=== PATIENT | male | born 1965 | race African-American/Black ===

== ENCOUNTER 2017-01-01 12:48 | Emergency (ER) | payer OTHER ==
[~2017-01-01] VITALS: Ht 190.5 cm; Wt 113.4 kg
[~2017-01-01 12:48] MED LIST: IBUPROFEN600 MG ORAL; IBUPROFEN800 MG ORAL; NORCO 10/3251 EA ORAL; NORCO 5-325 TA1 EACH ORAL
[2017-01-01] MEDS ORDERED: Ketorolac 60mg Inj IM ONE (13:45)
--- NOTE | 2017-01-01 14:05 | Emergency Room Report ---
History of Present Illness General Chief Complaint: Pain Source: Patient Present Illness HPI 51 YO Male presents to the ED c/o left submandibular swelling which gets worse with eating and causes mild 5/10 discomfort and eventually regression, patient has a history of salivary duct stone. he also reports exacerbation of sciatica and reports 8/10 in severity low back pain radiating down the right leg denies incontinence denies recent trauma or fall. Denies recent illness, ill contacts or recent travel.Patient denies history of neoplastic disease, or recent spinal procedure. Denies numbness tingling or loss of sensation or gross motor movements of the extremities, incontinence of bowel or bladder. Denies numbness tingling or loss of sensation or gross motor movements of the extremities, incontinence of bowel or bladder. Denies CP, Palpitations, LOC, AMS, dizziness, Changes in Vision, Sensation, paresthesias, or a sudden severe headache. Allergies: Coded Allergies: No Known Allergies (Unverified , 05/08/14) Patient History Past Medical History: see triage record Past Surgical History: none Pertinent Family History: none Immunizations: UTD Reviewed Nursing Documentation: PMH: Agreed, PSxH: Agreed Nursing Documentation-PMH Past Medical History: No Stated History Review of Systems All Other Systems: negative except mentioned in HPI Physical Exam Vital Signs Date Time Temp Pulse Resp B/P Pulse Ox O2 Delivery O2 Flow Rate FiO2 01/01/17 13:06 97.9 127 18 150/92 97 Room Air Sp02 EP Interpretation: reviewed, normal General Appearance: no apparent distress, alert, GCS 15, non-toxic Head: normocephalic, atraumatic Eyes: bilateral eye PERRL, bilateral eye normal inspection ENT: hearing grossly normal, normal pharynx, no angioedema, normal voice, other - left submandibular swelling very minimal, no fluctuance, no erythema no palpable stones on bimanual exam. no tenderness under the tongue. Neck: full range of motion, supple/symm/no masses Respiratory: lungs clear, normal breath sounds, speaking full sentences Cardiovascular #1: regular rate, rhythm, no edema Gastrointestinal: normal bowel sounds, non tender, soft, no guarding, no rebound Rectal: deferred Genitourinary: normal inspection, no CVA tenderness Musculoskeletal: back normal, gait/station normal, normal range of motion, tender - lumbar paraspinal ttp, no midline ttp, mainly right paraspinal ttp, FROM of spine, no obvious deformities, no erytehma Neurologic: alert, oriented x3, responsive, motor strength/tone normal, sensory intact, cerebellar normal, normal gait, speech normal Psychiatric: judgement/insight normal, memory normal, mood/affect normal Skin: normal color, no rash, warm/dry, well hydrated Lymphatic: no adenopathy Medical Decision Making PA Attestation Dr. Aviles is my supervising Physician whom patient management has been discussed with. Diagnostic Impression: Primary Impression: Sialoadenitis of submandibular gland Additional Impression: Sciatica, right side ER Course Pt. presents to the ED c/o left submandibular swelling which gets worse with eating and causes mild discomfort and eventually regression, patient has a history of salivary duct stone. he also reports exacerbation of sciatica and reports 9/10 in severity low back pain radiating down the right leg denies incontinence denies recent trauma or fall. Denies recent illness, ill contacts or recent travel. Ddx considered but are not limited to sialoadenitis, ludwigs, cellulitis, parotitis, lad, sciatica, epidural abscess. Vital signs: pt is tachycardic, pt. is afebrile H&PE are most consistent with sialoadenitis of submandibular gland, No evidence of infection at this time. Swelling is minimal, no erythema no fevers. ORDERS: none required at this time, the diagnosis is clinical ED INTERVENTIONS: -IM TORADOL -Tylenol PO DISCHARGE: At this time pt. is stable for d/c to home. Will provide printed patient care instructions, and any necessary prescriptions. Care plan and follow up instructions have been discussed with the patient prior to discharge. Last Vital Signs Date Time Temp Pulse Resp B/P Pulse Ox O2 Delivery O2 Flow Rate FiO2 01/01/17 13:06 97.9 127 18 150/92 97 Room Air Disposition: HOME, SELF-CARE Condition: Stable Scripts Acetaminophen* (TYLENOL EXTRA STRENGTH*) 500 Mg Tablet 500 MG ORAL Q6H Y for Mild Pain/Temp > 100.5, #20 TAB 0 Refills Prov: Prerna Roberts P.A. 01/01/17 Cyclobenzaprine Hcl* (FLEXERIL*) 10 Mg Tablet 10 MG ORAL THREE TIMES A DAY for 7 Days, #21 TAB Prov: Prerna Roberts P.A. 01/01/17 Patient Instructions: Salivary Gland Infection, Sciatica Additional Instructions: Take medications as directed. Follow up with PCP in 3-5 days Return sooner to ED if new symptoms occur, or current symptoms become worse. Do not drink alcohol, drive, or operate heavy machinery while taking Muscle Relaxer as this may cause drowsiness. - Please note that this Emergency Department Report was dictated using [employer] instructor technology software, occasionally this can lead to erroneous entry secondary to interpretation by the dictation equipment. Prerna Roberts January 01, 2017 14:05
[2017-01-01] MEDS ORDERED: TYLENOL EXTRA500 MG ORAL (14:07)
[2017-01-01] MEDS ORDERED: CYCLOBENZAPRINE10 MG ORAL (14:07)
[2017-01-01 14:37] VITALS: BP 148/87
== END 2017-01-01 14:40 | disposition home or self-care (01) ==
LOC: EMR 13:41
DX: K11.20 Sialoadenitis, unspecified (principal); M54.31 Sciatica, right side; R00.0 Tachycardia, unspecified
CPT/HCPCS: 96372; 99284

== ENCOUNTER → 2017-02-11 | Emergency (ER) | payer OTHER ==
[~2017-02-11] VITALS: Ht 190.5 cm; Wt 113.4 kg
[~2017-02-11] MED LIST changes: +CYCLOBENZAPRINE10 MG ORAL; +ROBAXIN-750750 MG PO; +TYLENOL EXTRA500 MG ORAL
[2017-02-11 05:29] VITALS: BP 158/96
[2017-02-11 06:11] VITALS: BP 158/96
--- NOTE | 2017-02-11 06:21 | Emergency Room Report ---
History of Present Illness General Chief Complaint: Lower Back Pain or Injury Source: Patient Present Illness HPI 51YOM walk-in with 2-3 months of central lower back pain, "radiating down both legs." No known trauma or aggravating injury. States "I was told I have sciatica" last time I was here. Requesting T#4. Took only ibuprofen at home, mild relief. Denies associated urinary/fecal incontinence, lower extremity numbness, fever/chills, history of cancer, IVDU. Allergies: Coded Allergies: No Known Allergies (Unverified , 05/08/14) Patient History Past Medical History: none Past Surgical History: none Pertinent Family History: none Social History: Denies: alcohol use, drug use, smoking Immunizations: UTD Reviewed Nursing Documentation: PMH: Agreed, PSxH: Agreed Nursing Documentation-PMH Past Medical History: No Stated History Review of Systems All Other Systems: negative except mentioned in HPI Physical Exam Vital Signs Date Time Temp Pulse Resp B/P Pulse Ox O2 Delivery O2 Flow Rate FiO2 02/11/17 05:13 97.9 87 18 158/96 98 Room Air Sp02 EP Interpretation: reviewed, abnormal General Appearance: normal inspection, well appearing, no apparent distress, alert, GCS 15, non-toxic, obese Head: normocephalic, atraumatic Eyes: bilateral eye EOMI, bilateral eye PERRL ENT: normal ENT inspection, hearing grossly normal, normal voice Neck: normal inspection, full range of motion, supple, no bony tend Respiratory: normal inspection, lungs clear, normal breath sounds, no respiratory distress, no retraction, no wheezing Cardiovascular #1: regular rate, rhythm, no edema Gastrointestinal: normal inspection, normal bowel sounds, non tender, soft, no guarding, no hernia Genitourinary: no CVA tenderness Musculoskeletal: normal inspection, back normal, normal range of motion, Shemar' s Sign negative, other - +Straight leg raise bilaterally Neurologic: normal inspection, alert, oriented x3, responsive, cargo supervisor III-XII nml as tested, motor strength/tone normal, speech normal Psychiatric: normal inspection, judgement/insight normal, mood/affect normal Skin: normal inspection, normal color, no rash Lymphatic: normal inspection Medical Decision Making Diagnostic Impression: Primary Impression: Low back pain Qualified Codes: M54.42 - Lumbago with sciatica, left side; M54.41 - Lumbago with sciatica, right side; G89.29 - Other chronic pain ER Course A: low suspicion for cord compression given well appearance, duration of many months, no focal neuro deficits, absence of midline ttp/masses and pain worse with movement. Rx robaxin, ibuprofen PMD followup Last Vital Signs Date Time Temp Pulse Resp B/P Pulse Ox O2 Delivery O2 Flow Rate FiO2 02/11/17 06:11 97.9 89 18 158/96 98 Room Air Status: improved Disposition: HOME, SELF-CARE Condition: Improved Scripts Ibuprofen* (MOTRIN*) 800 Mg Tablet 800 MG ORAL THREE TIMES A DAY for For Pain for 7 Days, #30 TAB 0 Refills Prov: SINAN GIMENEZ M.D. 02/11/17 Methocarbamol* (ROBAXIN-750*) 750 Mg Tablet 750 MG PO TID for For Pain for 7 Days, #30 TAB 0 Refills Prov: SINAN GIMENEZ M.D. 02/11/17 Patient Instructions: Back Pain, Adult SINAN GIMENEZ M.D. Feb 11, 2017 06:21
== END | disposition home or self-care (01) ==
LOC: EMR 06:05
DX: M54.42 Lumbago with sciatica, left side (principal); M54.41 Lumbago with sciatica, right side; G89.29 Other chronic pain
CPT/HCPCS: 99284

== ENCOUNTER 2017-08-16 02:58 | Emergency (ER) | payer OTHER ==
[~2017-08-16] VITALS: Ht 190.5 cm; Wt 145.1 kg
--- NOTE | 2017-08-16 03:38 | Emergency Room Report ---
History of Present Illness General Chief Complaint: Pain Source: Patient, Medical Record Present Illness HPI A 52-year-old male who present with altered mental status. He was younger, he has issue of sleepwalking. He woke up and thought that he was . He said that he saw his body sleeping but he was awake. He was scared and start yelling out people his name. He said somehow he walked to his car and drove here. He did not know how he got here. He said he has to drive around the block time before he found the ER. Now is awake and back to baseline. Denies any nausea vomiting. Has some palpitation. No focal deficit. Allergies: Coded Allergies: No Known Allergies (Unverified , 05/08/14) Patient History Past Medical History: see triage record, old chart reviewed Past Surgical History: none Pertinent Family History: none Social History: Denies: smoking Immunizations: other Reviewed Nursing Documentation: PMH: Agreed, PSxH: Agreed Nursing Documentation-PMH Hx Neurological Problems: Yes - SCIATICA Review of Systems Eye: Denies: eye pain, blurred vision ENT: Denies: ear pain, nose congestion, throat swelling Respiratory: Denies: cough, shortness of breath Cardiovascular: Denies: chest pain, palpitations Gastrointestinal: Denies: abdominal pain, diarrhea, nausea, vomiting Musculoskeletal: Denies: back pain, joint pain Skin: Denies: rash Neurological: Denies: headache, numbness Endocrine: Denies: increased thirst, increased urine Hematologic/Lymphatic: Denies: easy bruising All Other Systems: negative except mentioned in HPI Physical Exam Vital Signs Date Time Temp Pulse Resp B/P (MAP) Pulse Ox O2 Delivery O2 Flow Rate FiO2 08/16/17 03:12 98.2 109 15 141/90 92 Room Air vitals with tachycardia Sp02 EP Interpretation: reviewed, normal General Appearance: well appearing, no apparent distress, alert, obese Head: normocephalic, atraumatic Eyes: bilateral eye PERRL, bilateral eye EOMI ENT: hearing grossly normal, normal pharynx Neck: full range of motion, supple, no meningismus Respiratory: chest non-tender, lungs clear, normal breath sounds Cardiovascular #1: regular rate, rhythm - Heart rate 95, no murmur Gastrointestinal: normal bowel sounds, non tender, no mass, no organomegaly, no bruit, non-distended Musculoskeletal: back normal, gait/station normal, normal range of motion Psychiatric: mood/affect normal Skin: warm/dry Medical Decision Making Diagnostic Impression: Primary Impression: Altered awareness, transient ER Course Patient with altered mental status. May be sleepwalking/the care of. No evidence of TIA or CVA. We'll discharge home CT/MRI/US Diagnostic Results CT/MRI/US Diagnostic Results : Imaging Test Ordered: CT head Impression read by radiologist. Negative. Last Vital Signs Date Time Temp Pulse Resp B/P (MAP) Pulse Ox O2 Delivery O2 Flow Rate FiO2 08/16/17 03:12 98.2 109 15 141/90 92 Room Air Status: improved Disposition: HOME, SELF-CARE Condition: Stable Additional Instructions: Followup with your Dr. in 7 days. Return if symptom worsen. MAIRA CONNELL M.D. Aug 16, 2017 03:38
[2017-08-16 04:51] VITALS: BP 127/83
[2017-08-16 04:52] VITALS: BP 141/90
--- NOTE | 2017-08-16 09:02 | Diagnostic Imaging Report ---
Indication: Altered mental status Technique: Continuous helical CT scanning of the head was performed utilizing automated exposure control without intravenous contrast material. Axial and coronal reconstructions were obtained. Comparison: None CT dose: Total DLP 1562.58 mGycm; CTDI vol 70.38 mGy Findings: There is no acute intracranial hemorrhage, mass effect or cortical edema. Size and configuration of the ventricular system within normal limits. The posterior fossa and fourth ventricle are unremarkable. Sellar and suprasellar regions are grossly unremarkable. Visualized mastoid air cells and paranasal sinuses are unremarkable. No focal lesions of the bony calvarium or soft tissues of the scalp are seen. Atherosclerotic calcification noted within the cavernous portion of the right internal carotid artery. Impression: No evidence of acute intracranial hemorrhage, mass effect or cortical edema. MRI may be obtained for more sensitive evaluation as clinically indicated. This corresponds with the statrad preliminary report. The CT scanner at [facility] is accredited by the [employer] and the scans are performed using protocols designed to limit radiation exposure to as low as reasonably achievable to attain images of sufficient resolution adequate for diagnostic evaluation.
== END 2017-08-16 04:53 | disposition home or self-care (01) ==
LOC: EMR 03:44
DX: R40.4 Transient alteration of awareness (principal)
CPT/HCPCS: 70450; 99284

== ENCOUNTER 2017-08-21 13:08 | Emergency (ER) | payer OTHER ==
[~2017-08-21] VITALS: Ht 190.5 cm; Wt 136.1 kg
[2017-08-21] MEDS ORDERED: GABAPENTIN600 MG ORAL (13:18)
--- NOTE | 2017-08-21 13:41 | Emergency Room Report ---
History of Present Illness General Chief Complaint: Dizziness Source: Patient (Nick Rodriguez M.D.) Present Illness HPI 52-year-old male, history of chronic back pain, presents with generalized weakness and dizziness. Patient states that he woke up this morning feeling weak especially when walking. Slight lightheadedness. Denies any chest pain cough shortness of breath. No dysuria or hematuria Has otherwise been eating and drinking well (Nick Rodriguez M.D.) Allergies: Coded Allergies: No Known Allergies (Unverified , 05/08/14) Patient History Past Medical History: see triage record Past Surgical History: none Pertinent Family History: none Reviewed Nursing Documentation: PMH: Agreed, PSxH: Agreed (Nick Rodriguez M.D. ) Nursing Documentation-PMH Past Medical History: No History, Except For Hx Neurological Problems: Yes - SCIATICA (Nick Rodriguez M.D.) Review of Systems All Other Systems: negative except mentioned in HPI (Nick Rodriguez M.D.) Physical Exam Vital Signs Date Time Temp Pulse Resp B/P (MAP) Pulse Ox O2 Delivery O2 Flow Rate FiO2 08/21/17 13:11 99.0 121 20 127/90 94 Room Air Sp02 EP Interpretation: reviewed, normal General Appearance: alert, GCS 15, non-toxic, mild distress Head: normocephalic, atraumatic Eyes: bilateral eye normal inspection, bilateral eye PERRL, bilateral eye EOMI ENT: normal ENT inspection, normal pharynx, normal voice, moist mucus membranes Neck: normal inspection, full range of motion, supple Respiratory: normal inspection, lungs clear, normal breath sounds, no respiratory distress, no retraction, no wheezing, speaking full sentences, chest symmetrical Cardiovascular #1: normal inspection, regular rate, rhythm, normal capillary refill Cardiovascular #2: 2+ radial (R), 2+ radial (L) Gastrointestinal: normal inspection, non tender, soft, non-distended, no guarding Genitourinary: no CVA tenderness Musculoskeletal: normal inspection, back normal, normal range of motion, non- tender Neurologic: normal inspection, alert, oriented x3, responsive, motor strength/ tone normal, sensory intact, normal gait, speech normal Psychiatric: normal inspection, judgement/insight normal, memory normal Skin: normal inspection, normal color, no rash, warm/dry, well hydrated, normal turgor (Nick Rodriguez M.D.) Medical Decision Making Diagnostic Impression: Primary Impression: Dehydration Additional Impressions: Hypokalemia TRISTAN (acute kidney injury) ER Course 52-year-old male with generalized weakness, lightheadedness DDX: Dehydration, electrolyte disturbance, infectious, UTI, ACS Plan: Obtain labs, ua, ucx, EKG, chest x-ray ER course: Patient has remained stable during ED stay. Signup to Dr. Gimenez 52-year-old male, generalized weakness Pending labs Please note that this Emergency Department Report was dictated using [employer] technology software, occasionally this can lead to erroneous entry secondary to interpretation by the dictation equipment EKG Diagnostic Results EP Interpretation: Yes Rate: normal Rhythm: NSR ST Segments: T-wave flattening in aVL ASA given to patient: No (Nick Rodriguez M.D.) ER Course Received signout from Dr. Rodriguez Please see her note for full history of present illness, PE, A/p On my reassessment patient states they feel "much better". Labs significant for hypokalemia, mild elevation in bicarbonate likely due to dehydration. Patient endorses 2 episodes of vomiting this morning Also elevated serum creatinine likely TRISTAN from dehydration Given 1 L IV fluid hydration and potassium supplementation Tolerating by mouth in the ER at this time Was also given Tylenol for "chronic back pain." Advised to followup with primary doctor to recheck potassium and kidney function in one to 2 days ER course: Patient has remained stable during ED stay. Patient is to be discharged to home. Patient is instructed to follow up with their primary care doctor within 1-2 days to recheck K and SerumCr Patient is instructed to follow up with *specialist within 3 days. Strict return precautions discussed with patient such as fever, chills, worsening/severe pain, nausea, vomiting, which may indicate severe illness. Patient verbalizes understanding and agrees with plan. Please note that this Emergency Department Report was dictated using [employer] software, occasionally this can lead to erroneous entry secondary to interpretation by the dictation equipment (SINAN GIMENEZ M.D.) Last Vital Signs Date Time Temp Pulse Resp B/P (MAP) Pulse Ox O2 Delivery O2 Flow Rate FiO2 08/21/17 13:11 99.0 121 20 127/90 94 Room Air (Nick Rodriguez M.D.) Status: improved (SINAN GIMENEZ M.D.) Disposition: HOME, SELF-CARE Referrals: [facility]ERR[facility] (PCP) Nick Rodriguez M.D. Aug 21, 2017 13:41 SINAN GIMENEZ M.D. Aug 21, 2017 14:52
[2017-08-21 14:00] VITALS: BP 101/81
[2017-08-21 14:06] LABS: BASOPHILS % (AUTO) 0.7 % (0.0-2.0); EOSINOPHILS % (AUTO) 2.9 % (0.0-3.0); LYMPHOCYTES % (AUTO) 34.5 % (20.0-45.0); MEAN CORPUSCULAR HEMOGLOBIN 30.5 PG (27.0-31.0); MEAN CORPUSCULAR HGB CONC 32.3 G/DL (32.0-36.0); MEAN CORPUSCULAR VOLUME 95 FL (80-99); MEAN PLATELET VOLUME 9.6 FL (6.5-10.1); MONOCYTES % (AUTO) 6.9 % (1.0-10.0); NEUTROPHILS % (AUTO) 55.1 % (45.0-75.0); PLATELET COUNT 289 K/UL (150-450); RED BLOOD COUNT 5.21 M/UL (4.70-6.10); RED CELL DISTRIBUTION WIDTH 12.2 % (11.6-14.8); WHITE BLOOD COUNT 9.2 K/UL (4.8-10.8)
[2017-08-21 14:17] LABS: ANION GAP 5 mmol/L (5-15); CALCIUM 7.9 MG/DL (8.5-10.1); CHLORIDE 94 MMOL/L (98-107); GLOMERULAR FILTRATION RATE 42.8 mL/min (>60); POTASSIUM 2.9 MMOL/L (3.5-5.1); SODIUM 140 MMOL/L (136-145)
[2017-08-21 14:19] LABS: CARBON DIOXIDE 41 MMOL/L (21-32)
[2017-08-21 14:28] LABS: ALANINE AMINOTRANSFERASE 55 U/L (12-78); ASPARTATE AMINO TRANSFERASE 33 U/L (15-37)
[2017-08-21 15:23] VITALS: BP 111/75
--- NOTE | 2017-08-21 16:09 | Diagnostic Imaging Report ---
Indication: Chest pain Technique: XRAY Chest 1v Comparison: None Findings: Heart size and mediastinal contours are within normal limits given technique. There is no focal consolidation, pneumothorax or pleural effusion. Osseous structures demonstrate no acute abnormality. Impression: No radiographic evidence of acute cardiopulmonary disease.
--- NOTE | 2017-09-11 15:14 | Cardiology Report ---
APPROVED REPORT EKG Measurement Heart [id number] QT0T0 QTc0 No QRS complexes found, no ECG analysis possible
== END 2017-08-21 15:23 | disposition home or self-care (01) ==
LOC: EMR 13:30
DX: E86.0 Dehydration (principal); E87.6 Hypokalemia; N17.9 Acute kidney failure, unspecified
CPT/HCPCS: 36415; 71010; 80053; 83880; 84484; 85025; 93005; 96360; 99284; J8499